=== PATIENT | male | born 1985 | race Caucasian/White ===

== ENCOUNTER 2018-12-07 00:01 | Emergency (ER) | payer OTHER ==
--- NOTE | 2018-12-07 01:12 | ER Document Report ---
ED Substance Abuse / Acc. OD - General Chief Complaint: ETOH Abuse Stated Complaint: ALCOHOL DEPENDENCE Time Seen by Provider: 12/07/18 00:53 Notes: Patient is a 33-year-old male that comes to the emergency department for chief complaint of alcohol dependence. He states that he drinks on a daily basis now, he states he did detox last year at his parents house, he did get chills and feel bad during the nights but he did not have any vomiting, never has had a seizure, was able to do this without any medications. He states the main reason he is here is because he came here with his who was required to come here by her command. The patient is not active duty. He is not on any daily medications. He denies recreational drugs, he is a former smoker. He had 1.5 beers today and no other alcohol he reports. He states he is stressed out and has not eaten or slept well but he denies suicidal ideations, homicidal ideations, or history of depression/anxiety/psychiatric hospitalization. He states he does not want to get placed in a detox program now but he is interested in an outpatient detox program, she states she has already looked this up, he states he also has questions about what he can do additionally. TRAVEL OUTSIDE OF THE [place] IN LAST 30 DAYS: No - Related Data Allergies/Adverse Reactions: No Known Allergies Allergy (Unverified 12/07/18 00:04) Past Medical History - General Information source: Patient - Social History Smoking Status: Former Smoker Frequency of alcohol use: Heavy Lives with: Family Family History: Reviewed & Not Pertinent - Medical History Medical History: Negative Surgical Hx: Negative - Immunizations Immunizations up to date: Yes Hx Diphtheria, Pertussis, Tetanus Vaccination: Yes Review of Systems - Review of Systems Constitutional: No symptoms reported EENT: No symptoms reported Cardiovascular: No symptoms reported Respiratory: No symptoms reported Gastrointestinal: No symptoms reported Genitourinary: No symptoms reported Male Genitourinary: No symptoms reported Musculoskeletal: No symptoms reported Skin: No symptoms reported Hematologic/Lymphatic: No symptoms reported Neurological/Psychological: See HPI Physical Exam - Vital signs Vitals: Temp Pulse BP Pulse Ox 98.8 F 95 170/93 H 96 12/07/18 00:42 12/07/18 00:42 12/07/18 00:42 12/07/18 00:42 - Notes Notes: GENERAL: Alert, interacts well. No acute distress. HEAD: Normocephalic, atraumatic. EYES: Pupils equal, round, and reactive to light. Extraocular movements intact. ENT: Oral mucosa moist, tongue midline. Oropharynx unremarkable. Airway patent. Nares patent, no nasal septal hematoma, TM's intact. NECK: Full range of motion. Supple. Trachea midline. LUNGS: Clear to auscultation bilaterally, no wheezes, rales, or rhonchi. No respiratory distress. HEART: Regular rate and rhythm. No murmur ABDOMEN: Soft, non-tender. Non-distended. Bowel sounds present in all 4 quadrants. GENITOURINARY: Deferred EXTREMITIES: Moves all 4 extremities spontaneously. No edema, normal radial and dorsalis pedis pulses bilaterally. No cyanosis. BACK: no cervical, thoracic, lumbar midline tenderness. No saddle anesthesia, normal distal neurovascular exam. NEUROLOGICAL: Alert and oriented x3. Normal speech. [cranial nerves II through XII grossly intact]. PSYCH: Normal affect, normal mood. SKIN: Warm, dry, normal turgor. No rashes or lesions noted. Course - Re-evaluation Re-evalutation: Patient slightly hypertensive, however he is not noticeably jittery, his neurological exam is unremarkable, he is calm and interactive. He is well-appearing. He does not report concerning withdrawal symptoms in the past. He is not suicidal or homicidal. I discussed different options with patient. After discussion decision was made to provide him with Librium, he states that he will fill this in the morning and begin this, he states that this does not help him significantly while he is staying with his [id number] that he will seek outpatient detox program. Discussed return precautions including severe symptoms of alcohol withdrawal. Patient states understanding and agreement. Stable at time of discharge. Left with mother in law. - Vital Signs Vital signs: Temp Pulse Resp BP Pulse Ox 98.3 F 92 17 154/99 H 96 12/07/18 02:28 12/07/18 02:28 12/07/18 02:28 12/07/18 02:28 12/07/18 02:28 Discharge - Discharge Clinical Impression: Alcohol dependence Qualifiers: Substance use status: uncomplicated Qualified Code(s): F10.20 - Alcohol dependence, uncomplicated Condition: Stable Disposition: HOME, SELF-CARE Additional Instructions: Take the Librium as prescribed, this is to help you stop drinking alcohol and to avoid the symptoms of withdrawal. Do not drink while taking the medication. Follow-up with primary care. If needed also enroll in the detox program outpatient as we discussed. Return for any concerning symptoms including vomiting, uncontrollable shaking, or something is not right. Prescriptions: Chlordiazepoxide HCl [Librium 25 mg Capsule] 1 cap PO ASDIR PRN #25 capsule PRN Reason: Forms: Elevated Blood Pressure
[2018-12-07 02:32] VITALS: BP 154/99
== END 2018-12-07 02:33 | disposition home or self-care (01) ==
LOC: ER 00:01
DX: F10.20 Alcohol dependence, uncomplicated (principal); Z87.891 Personal history of nicotine dependence
CPT/HCPCS: 99283

== ENCOUNTER 2020-05-02 13:15 | Emergency (ER) | payer OTHER ==
--- NOTE | 2020-05-02 14:03 | ER Document Report ---
ED Medical Screen (RME) - General Chief Complaint: Skin Problem Stated Complaint: SKIN RASH Time Seen by Provider: 05/02/20 13:57 Primary Care Provider: CHANCE FROST [Primary Care Provider] - Follow up as needed Mode of Arrival: Ambulatory Information source: Patient Notes: 34-year-old male presented to ED for rash to both legs both hands. He states he found a tick on his right hip about 2-1/2 weeks ago he also started using testosterone gel about 2-1/2 weeks ago he said right before he started the state he had a poison eli infection that resolved. He states he has had no fevers but he has had body aches and decreased in energy. He does not smoke but he does chew tobacco does not use alcohol or drugs. Only past medical history is high cholesterol. He is alert oriented respirations regular nonlabored speaking in full sentences at this time. I have greeted and performed a rapid initial assessment of this patient. A comprehensive ED assessment and evaluation of the patient, analysis of test results and completion of medical decision making process will be conducted by an additional ED providers. TRAVEL OUTSIDE OF THE [place] IN LAST 30 DAYS: No - Related Data Allergies/Adverse Reactions: No Known Allergies Allergy (Verified 05/02/20 13:49) Home Medications: Zetia, Rosuvastatin, Testim Past Medical History - Social History Chew tobacco use (# tins/day): Yes - 1/2 Frequency of alcohol use: Sober 1.5 year Drug Abuse: None Renal/ Medical History: Denies: Hx Peritoneal Dialysis - Immunizations Immunizations up to date: Yes Hx Diphtheria, Pertussis, Tetanus Vaccination: Yes Physical Exam - Vital signs Vitals: Temp Pulse Resp BP Pulse Ox 98.7 F 85 14 128/70 H 100 05/02/20 13:27 05/02/20 13:27 05/02/20 13:27 05/02/20 13:27 05/02/20 13:27 Course - Vital Signs Vital signs: Temp Pulse Resp BP Pulse Ox 98.7 F 85 14 128/70 H 100 05/02/20 13:27 05/02/20 13:27 05/02/20 13:27 05/02/20 13:27 05/02/20 13:27 Doctor's Discharge - Discharge Referrals: CHANCE FROST [Primary Care Provider] - Follow up as needed
[2020-05-02 15:00] LABS: ABSOLUTE EOSINOPHILS # (AUTO) 0.3 10^3/uL (0.0-0.6); ABSOLUTE LYMPHOCYTES (AUTO) 1.3 10^3/uL (0.5-4.7); ABSOLUTE MONOCYTES (AUTO) 0.8 10^3/uL (0.1-1.4); ABSOLUTE NEUT (AUTO) 4.2 10^3/uL (1.7-8.2); BASOPHILS % (AUTO) 0.6 % (0-2); EOSINOPHILS % (AUTO) 4.4 % (0-6); HEMATOCRIT 42.8 % (37.9-51.0); HEMOGLOBIN 14.6 g/dL (13.5-17.0); LYMPHOCYTES % (AUTO) 20.3 % (13-45); MEAN CORPUSCULAR HEMOGLOBIN 30.1 pg (27.0-33.4); MEAN CORPUSCULAR HGB CONC 34.2 g/dL (32.0-36.0); MEAN CORPUSCULAR VOLUME 88 fl (80-97); MONOCYTES % (AUTO) 11.6 % (3-13); PLATELET COUNT 292 10^3/uL (150-450); RED BLOOD COUNT 4.86 10^6/uL (4.35-5.55); RED CELL DISTRIBUTION WIDTH 13.6 % (11.5-14.0); SEGMENTED NEUTROPHILS % (AUTO) 63.1 % (42-78); TOTAL CELLS COUNTED % (AUTO) 100 %; WHITE BLOOD COUNT 6.6 10^3/uL (4.0-10.5)
[2020-05-02 15:06] LABS: APPEARANCE,URINE CLEAR; BILIRUBIN,URINE NEGATIVE (NEGATIVE); COLOR,URINE YELLOW; GLUCOSE, URINE NEGATIVE (NEGATIVE); KETONES,URINE NEGATIVE (NEGATIVE); LEUKOCYTE ESTERASE,URINE NEGATIVE (NEGATIVE); NITRITE,URINE NEGATIVE (NEGATIVE); PROTEIN,URINE 30 mg/dL (NEGATIVE); URINE SPECIFIC GRAVITY 1.026; UROBILINOGEN,URINE NEGATIVE mg/dL (<2.0)
[2020-05-02 15:29] LABS: ALBUMIN 4.6 g/dL (3.5-5.0); ALKALINE PHOSPHATASE 49 U/L (38-126); ANION GAP 6 (5-19); ASPARTATE AMINO TRANSFERASE 22 U/L (17-59); BILIRUBIN,TOTAL 0.7 mg/dL (0.2-1.3); BLOOD UREA NITROGEN 12 mg/dL (7-20); CALCIUM 9.6 mg/dL (8.4-10.2); CARBON DIOXIDE 29 mmol/L (22-30); CHLORIDE 105 mmol/L (98-107); CREATINE KINASE 148 U/L (55-170); GLUCOSE 96 mg/dL (75-110); POTASSIUM 4.8 mmol/L (3.6-5.0); TOTAL PROTEIN 7.5 g/dL (6.3-8.2)
--- NOTE | 2020-05-02 18:07 | ER Document Report ---
ED General - General Chief Complaint: Skin Problem Stated Complaint: SKIN RASH Time Seen by Provider: 05/02/20 13:57 Primary Care Provider: CHANCE FROST [NO LOCAL MD] - Follow up as needed Mode of Arrival: Ambulatory TRAVEL OUTSIDE OF THE [place] IN LAST 30 DAYS: No - HPI Notes: Chief complaint: Skin rash History of present illness: 34-year-old male in good general health reports that he developed an area of typical poison alpa eruption over his right thigh after working in a wooded area about 2 weeks ago. He treated this with some [id number] antihistamines, hydrocortisone cream and he had some "leftover prednisone" that he took for about 3 days. This initially got better quickly and then after he finished prednisone he flared and has had more generalized itching and rash. Unfortunately he scratched it this and thinks that it may have become secondarily infected. He denies fever, chills, nausea or vomiting. He has no involvement of mucous membranes. He incidentally notes that he took to cough about 2 weeks ago. - Related Data Allergies/Adverse Reactions: No Known Allergies Allergy (Verified 05/02/20 13:49) Home Medications: Zetia, Rosuvastatin, Testim Past Medical History - General Information source: Patient - Social History Smoking Status: Never Smoker Chew tobacco use (# tins/day): Yes - 1/2 Frequency of alcohol use: Sober 1.5 year Drug Abuse: None Family History: Reviewed & Not Pertinent - Past Medical History Cardiac Medical History: Reports: None Endocrine Medical History: Reports: None Renal/ Medical History: Denies: Hx Peritoneal Dialysis GI Medical History: Denies: Hx Ulcer - Immunizations Immunizations up to date: Yes Hx Diphtheria, Pertussis, Tetanus Vaccination: Yes Review of Systems - Review of Systems Notes: Constitutional: Negative for fever. HENT: Negative for sore throat. Eyes: Negative for visual changes. Cardiovascular: Negative for chest pain. Respiratory: Negative for shortness of breath. Gastrointestinal: Negative for abdominal pain, vomiting or diarrhea. Genitourinary: Negative for dysuria. Musculoskeletal: Negative for back pain. Skin: As per HPI. Neurological: Negative for headaches, weakness or numbness. 10 point ROS negative except as marked above and in HPI. Physical Exam - Vital signs Vitals: Temp Pulse Resp BP Pulse Ox 98.7 F 85 14 128/70 H 100 05/02/20 13:27 05/02/20 13:27 05/02/20 13:27 05/02/20 13:27 05/02/20 13:27 - Notes Notes: GENERAL: Well-developed well-nourished appearing in no acute distress. SKIN: Patient has scattered vesicular eruption of multiple areas including right thigh, palms of both hands, cut right lower leg and upper back. Particularly the area on the right thigh has been excoriated and appears to have some surrounding erythema and acute inflammatory change. There is no drainage present. HEAD: Normocephalic atraumatic. EYES: PERRLA. EOMI. Conjunctivae and sclerae clear. EARS: CANALS AND TMS CLEAR. NOSE: CLEAR. MOUTH: Moist mucosa. Good dentition. No stridor or edema. No drooling. NECK: Supple. No masses or thyromegaly. No adenopathy. Carotids 2+ without bruits. No JVD. BACK: Symmetrical without tenderness. CHEST: Respirations unlabored. Breath sounds clear and symmetrical. HEART: Regular rhythm. No murmur gallop or rub. ABDOMEN: Soft nontender without masses, organomegaly or rebound. Bowel sounds normally active. No bruits. GENITALIA: Deferred. EXTREMITIES: No edema. No calf tenderness. Cap refill less than 1.5 seconds. Dorsalis pedis and posterior tibial pulses 3+ and symmetrical. NEUROLOGICAL: GCS 15. Alert and oriented x3. Normal gait. Fluent speech. Cranial nerves II through XII intact. Sensorimotor and cerebellar normal. Normal tone. PSYCHIATRIC: Appropriate affect. Course - Re-evaluation Re-evalutation: 05/02/20 18:07 CBC and comprehensive metabolic profile are unremarkable. Midlevel provider had drawn serology for Lyme disease although I do not think the characteristics of his presentation are strongly suggestive of Lyme disease my mind. I think this man probably has poison alpa dermatitis that has been incompletely treated with oral steroids and has flared. It looks like he may have some element of secondary infection from excoriation. I will put him on a longer course of oral steroids and give him an oral antibiotic and a prescription antihistamine. We will provide him a work note 3 days. I suggested that he be sure he has washed all of his close and towels with warm water and detergent to avoid re-exposure to plant oleoresin. Findings, clinical impression and plan of treatment have been discussed with patient/family. Understanding of current findings and recommendations has been acknowledged by them and there is agreement regarding disposition and follow-up. - Vital Signs Vital signs: Temp Pulse Resp BP Pulse Ox 98.7 F 85 14 128/70 H 100 05/02/20 13:27 05/02/20 13:27 05/02/20 13:27 05/02/20 13:27 05/02/20 13:27 - Laboratory Result Diagrams: 05/02/20 14:28 05/02/20 14:28 Laboratory results interpreted by me: 05/02/20 14:28 Urine Protein 30 H Discharge - Discharge Clinical Impression: Poison alpa dermatitis with secondary inf Condition: Stable Disposition: HOME, SELF-CARE Additional Instructions: Poison Alpa Poison alpa and poison oak can cause an itchy rash. This is called contact dermatitis. It's an allergy to an oil in the plant's leaves. The oil can be spread from clothing to skin, from pets to humans, or from one spot on the body to another. Washing thoroughly with soap immediately after exposure can prevent the rash. (Clothing should be washed as well.) If the oil is not removed, an itchy rash develops a few days after the exposure. Blisters may develop. Two to three weeks may be required for healing. Generally, treatment consists of: (1) an immediate thorough washing with soap to remove the oil, (2) application of a cortisone cream, and (3) antihistamines for itching. If the reaction is particularly severe, oral cortisone medicine may be required. If there are oozing areas, these can be soaked in epsom salts or Mann's solution. Call the doctor if the rash worsens despite treatment, or if signs of infection occur such as spreading redness, red streaks, swollen glands, s welling, or fever. You have been provided a work note for the next 3 days. Take prescribed medications as instructed. 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 Return here as needed for new or worsening symptoms: Pain that is worsening or unimproved Uncontrolled vomiting High fever or shaking chills Overall worsening Prescriptions: Hydroxyzine HCl [Atarax 10 mg Tablet] 25 mg PO TID PRN 7 Days #21 tablet PRN Reason: Clindamycin HCl 300 mg PO TID #30 capsule Prednisone [Deltasone 20 mg Tablet] 2 tab PO ASDIR PRN 12 Days #24 tablet PRN Reason: Forms: Return to Work Referrals: LOCALMD,NO [NO LOCAL MD] - Follow up as needed
[2020-05-02 18:40] VITALS: BP 142/75
[2020-05-04 14:37] LABS: E. CHAFFEENSIS IGG TITER Negative (Neg:<1:64)
[2020-05-04 15:00] LABS: E. CHAFFEENSIS IGM TITER Negative (Neg:<1:20)
[2020-05-05 07:08] LABS: LYME DISEASE IGM AB <0.80 index (0.00-0.79)
== END 2020-05-02 18:40 | disposition home or self-care (01) ==
LOC: ER 13:15
DX: L23.7 Allergic contact dermatitis due to plants, except food (principal); L08.9 Local infection of the skin and subcutaneous tissue, unspecified; Z79.899 Other long term (current) drug therapy; Z72.0 Tobacco use
CPT/HCPCS: 36415; 80053; 81001; 82550; 82784; 85025; 86617; 86618; 99283